=== PATIENT | female | born 2000 | race African-American/Black ===

== ENCOUNTER 2024-02-07 14:30 | Outpatient (RCR) | payer OTHER, SELFPAY ==
--- NOTE | 2024-01-01 14:30 | PT.OPPOC ---
Physical, Occupational & Speech Therapy At [facility] Current Diagnoses Pain in left knee (01/01/24) Other abnormalities of gait and mobility (01/01/24) Visit Care Team Role Provider Type Michelle Mitchell MD Primary Care Provider Non-Staff Specialty: Medical Address: [address] [place] [address], [id number] Email: Hosea Lucas DO Attending Provider Non-Staff Family Provider Referring Provider Specialty: Medical Address: [address] [place] [address], 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 LTG Duration 03/03/24 One Impairment Pt does not have an appropriate home exercise program Short Term Goal (STG) Pt to be independent and compliant with an appropriate HEP STG Duration 02/01/24 Assessment Summary Assessment Pt presents with signs and symptoms consistent with left knee injury. Pt's anteriolateral joint pain, lateral pain with valgus stress, and positive Pardeep and Apley compression tests could be suggestive of lateral meniscus derangement. Less likely due to negative imaging ~1 year ago, however if pt does not improve as expected with conservative treatment, further imaging may be indicated. Pt's biggest limitations at this point are fairly significant increases in pain with stairs, squatting , or attempts at running. Will likely benefit from skilled therapy focusing on increased strength and stabilization of her left knee, as well as gentle STM and joint mobilization. Physical Therapy Plan Frequency and Duration Frequency of Treatment 2x/Week Plan of Care Start Date 01/01/24 Plan of Care End Date 03/03/24 Therapeutic Interventions Therapeutic Interventions Home Exercise Program,Joint Mobilizations,Manual Therapy, Neuromuscular Re-education, Patient/Caregiver Education, Self-Care/Home Management,Soft Tissue Mobilization, Therapeutic Activities, Therapeutic Exercises Modalities Cold Pack/Ice Massage,Electric Stimulation,Hot Packs, Ultrasound Next Visit Focus/Plan Next Note Type Treatment Note Next Visit Plan KNee strengthening, joint mobilization, pain management Plan of Care Dates Plan of Care Start Date 01/01/24 Plan of Care End Date 03/03/24 Electronically Signed by: Baljit Ma, PT 01/02/24 [id number] If you are in agreement with this Plan of Care, please return a signed and dated copy. I have reviewed this Plan of Care and certify that the skilled therapy services above are required to meet the patient?s needs. Physician Signature Date Printed Name and Credentials Clinical Instructor Signature Printed Name and Credentials
--- NOTE | 2024-01-01 14:30 | PT.OIE ---
Current Diagnoses Pain in left knee (01/01/24) Other abnormalities of gait and mobility (01/01/24) Visit Care Team Role Provider Type Michelle Mitchell MD Primary Care Provider Non-Staff Specialty: Medical Address: [address] [place] [address], [address] Email: Hosea Lucas DO Attending Provider Non-Staff Family Provider Referring Provider Specialty: Medical Address: [address] [place] [address], [facility] [place], [address] Email: Physical Therapy Initial Evaluation PT-OP-A Visit Information Start: 01/01/24 16:12 Freq: Status: Active Protocol: Document 01/01/24 13:45 DCW (Rec: 01/01/24 16:20 DCW [id number]) Out-Patient Physical Therapy Visit Information Visit Information Visit Type Initial Evaluation Visit Start Time 13:45 Visit Stop Time 14:30 Visit Number 1 Number of EXPERIENCE DESIGNER Visits 0 Evaluation Information Evaluation Date 01/01/24 PT-OP-B Current Condition Start: 01/01/24 16:12 Freq: Status: Active Protocol: Document 01/01/24 13:45 DCW (Rec: 01/02/24 14:01 DCW [id number]) Current Condition History of Current Condition Onset Date Four year history Current Complaints Left knee pain History of Current Condition Pt is a 23 year old female presenting with a four year history of left knee pain. 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 Increased pain with squats, stairs, sit<-> stand, or running. Has to ascend/descend stairs multiple times throughout the day due to her work. Pain is typically along medial and lateral areas with stairs, but the whole knee hurts with squats. Does report [place], but [place] was [place] unremarkable. PT-OP-C Subjective Start: 01/01/24 16:12 Freq: Status: Active Protocol: Document 01/01/24 13:45 DCW (Rec: 01/01/24 16:20 DCW [id number]) OP-PT Subjective Patient Comments Patient Comments Pt notes when she has previously been in PT, it helped minimize her pain, but it was always there Patient Questionnaires Lower Extremity Functional Scale LEFS Score 55/80 = 68.75% LEFS Impairment 20 to 39% Impaired (Score 48- 62) PT-OP-F Manual Assessment Start: 01/01/24 16:12 Freq: Status: Active Protocol: Document 01/01/24 13:45 DCW (Rec: 01/01/24 16:25 DCW [id number]) Manual Assessments Joint Mobility Assessment Joint Mobility Assessment Tenderness 3/4: Wincing and withdraw along left anteriolateral joint line PT-OP-G Mobility & Gait Start: 01/01/24 16:12 Freq: Status: Active Protocol: Document 01/01/24 13:45 DCW (Rec: 01/01/24 16:25 DCW [id number]) OP Gait Assessment Gait Deviations General Gait Pattern Antalgic,Lateral Trunk Lean Factors Limiting Gait Function Factors Limiting Gait Function Pain PT-OP-K Range of Motion Start: 01/01/24 16:12 Freq: Status: Active Protocol: Document 01/01/24 13:45 DCW (Rec: 01/01/24 16:25 DCW [id number]) Knee Goniometric Range of Motion Knee Right Patient Position Supine Flexion Active (degrees) 120 Extension Active (degrees) 0 Left Patient Position Supine Flexion Active (degrees) 135 Extension Active (degrees) 0 PT-OP-L Special Tests Start: 01/01/24 16:12 Freq: Status: Active Protocol: Document 01/01/24 13:45 DCW (Rec: 01/01/24 16:25 DCW [id number]) Special Tests Knee Special Tests Varus- 25 Degrees Test Results Negative Valgus- 25 Degrees Test Results Positive left for lateral joint pain Patellar Grind Test Test Results Positive left Pardeep Test Test Results Positive left Shawanda's Test Results Negative Apprehension Test Test Results Positive left Apley's Compression Test Results Strongly positive left PT-OP-M Strength Start: 01/01/24 16:12 Freq: Status: Active Protocol: Document 01/01/24 13:45 DCW (Rec: 01/01/24 16:25 DCW [id number]) Knee Strength Knee Manual Muscle Testing Right Flexion (S2) 4+ Good+ Extension (L3) 4+ Good+ Left Flexion (S2) 4- Good- Extension (L3) 4 Good Comments Limited secondary to pain PT-OP-Q Treatments Start: 01/01/24 16:12 Freq: Status: Active Protocol: Document 01/01/24 13:45 DCW (Rec: 01/01/24 16:20 DCW [id number]) Therapeutic Exercises 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s Step Lunge 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 Name Mini-lunge on step Side left Equipment Used 6 step Comments HEP - Pain-free ROM Hip Abduction 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 Name Hip Abduction Side left Comments Stopped d/t increased pain TKE 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 Name TKE Side left Resistance Lv 3 Comments HEP PT-OP-T Assessment and Plan Start: 01/01/24 16:12 Freq: Status: Active Protocol: Document 01/01/24 13:45 DCW (Rec: 01/02/24 14:01 DCW [id number]) Physical Therapy Assessment Evaluation Complexity Number of Personal Factors/Comorbidities 1-2 Number of Body Systems Impaired 4 or More Clinical Presentation at Evaluation Evolving Impairments Impairments Functional Activities, Functional Mobility,Pain,ROM, Strength Goals Two Impairment Pt unable to ascend/descend stairs without increased left knee pain 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 LTG Duration 03/03/24 One Impairment Pt does not have an appropriate home exercise program Short Term Goal (STG) Pt to be independent and compliant with an appropriate HEP STG Duration 02/01/24 Assessment Summary Assessment Pt presents with signs and symptoms consistent with left knee injury. Pt's anteriolateral joint pain, lateral pain with valgus stress, and positive Pardeep and Apley compression tests could be suggestive of lateral meniscus derangement. Less likely due to negative imaging ~1 year ago, however if pt does not improve as expected with conservative treatment, further imaging may be indicated. Pt's biggest limitations at this point are fairly significant increases in pain with stairs, squatting , or attempts at running. Will likely benefit from skilled therapy focusing on increased strength and stabilization of her left knee, as well as gentle STM and joint mobilization. Physical Therapy Plan Frequency and Duration Frequency of Treatment 2x/Week Plan of Care Start Date 01/01/24 Plan of Care End Date 03/03/24 Therapeutic Interventions Therapeutic Interventions Home Exercise Program,Joint Mobilizations,Manual Therapy, Neuromuscular Re-education, Patient/Caregiver Education, Self-Care/Home Management,Soft Tissue Mobilization, Therapeutic Activities, Therapeutic Exercises Modalities Cold Pack/Ice Massage,Electric Stimulation,Hot Packs, Ultrasound Next Visit Focus/Plan Next Note Type Treatment Note Next Visit Plan KNee strengthening, joint mobilization, pain management
--- NOTE | 2024-01-07 17:32 | PT.OTN ---
Current Diagnoses Pain in left knee (01/07/24) Other abnormalities of gait and mobility (01/07/24) Physical Therapy Treatment Note PT-OP-A Visit Information Start: 01/01/24 16:12 Freq: Status: Active Protocol: Document 01/07/24 16:48 DCW (Rec: 01/07/24 17:32 DCW [id number]) Out-Patient Physical Therapy Visit Information Visit Information Visit Type Treatment Note Visit Start Time 16:48 Visit Stop Time 17:30 Visit Number 2 Number of SUPERVISOR CONTACT LENS Visits 0 Evaluation Information Evaluation Date 01/01/24 PT-OP-B Current Condition Start: 01/01/24 16:12 Freq: Status: Active Protocol: Document 01/01/24 13:45 DCW (Rec: 01/02/24 14:01 DCW [id number]) Current Condition History of Current Condition Onset Date Four year history Current Complaints Left knee pain History of Current Condition Pt is a 23 year old female presenting with a four year history of left knee pain. 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 Increased pain with squats, stairs, sit<-> stand, or running. Has to ascend/descend stairs multiple times throughout the day due to her work. Pain is typically along medial and lateral areas with stairs, but the whole knee hurts with squats. Does report [place], but it was reportedly unremarkable. PT-OP-C Subjective Start: 01/01/24 16:12 Freq: Status: Active Protocol: Document 01/07/24 16:48 DCW (Rec: 01/07/24 17:32 DCW [id number]) OP-PT Subjective Patient Comments Patient Comments Pt notes she feels pretty good today. PT-OP-F Manual Assessment Start: 01/01/24 16:12 Freq: Status: Active Protocol: Document 01/01/24 13:45 DCW (Rec: 01/01/24 16:25 DCW [id number]) Manual Assessments Joint Mobility Assessment Joint Mobility Assessment Tenderness 3/4: Wincing and withdral along left anteriolateral joint line PT-OP-G Mobility & Gait Start: 01/01/24 16:12 Freq: Status: Active Protocol: Document 01/01/24 13:45 DCW (Rec: 01/01/24 16:25 DCW [id number]) OP Gait Assessment Gait Deviations General Gait Pattern Antalgic,Lateral Trunk Lean Factors Limiting Gait Function Factors Limiting Gait Function Pain PT-OP-K Range of Motion Start: 01/01/24 16:12 Freq: Status: Active Protocol: Document 01/01/24 13:45 DCW (Rec: 01/01/24 16:25 DCW [id number]) Knee Goniometric Range of Motion Knee Right Patient Position Supine Flexion Active (degrees) 120 Extension Active (degrees) 0 Left Patient Position Supine Flexion Active (degrees) 135 Extension Active (degrees) 0 PT-OP-L Special Tests Start: 01/01/24 16:12 Freq: Status: Active Protocol: Document 01/01/24 13:45 DCW (Rec: 01/01/24 16:25 DCW [id number]) Special Tests Knee Special Tests Varus- 25 Degrees Test Results Negative Valgus- 25 Degrees Test Results Positive left for lateral joint pain Patellar Grind Test Test Results Positive left Pardeep Test Test Results Positive left Shawanda's Test Results Negative Apprehension Test Test Results Positive left Apley's Compression Test Results Strongly positive left PT-OP-M Strength Start: 01/01/24 16:12 Freq: Status: Active Protocol: Document 01/01/24 13:45 DCW (Rec: 01/01/24 16:25 DCW [id number]) Knee Strength Knee Manual Muscle Testing Right Flexion (S2) 4+ Good+ Extension (L3) 4+ Good+ Left Flexion (S2) 4- Good- Extension (L3) 4 Good Comments Limited secondary to pain PT-OP-Q Treatments Start: 01/01/24 16:12 Freq: Status: Active Protocol: Document 01/07/24 16:48 DCW (Rec: 01/07/24 17:32 DCW [id number]) Gym Equipment Shuttle Recovery Unilateral Squats Resistance 37# Bilateral Squats Resistance 50# Shuttle Balance Red Details WBOS, Staggered, Lateral weight shift Therapeutic Ball Wall Squat Exercise Details Wall Squat against T-ball Ball Size/Color Red - 55 cm Add ball squeeze Hip/Knee Flexion Exercise Details Resisted hip/knee flexion Ball Size/Color Red - 55 cm Therapeutic Exercises Supine Exercises Bridging Supine Exercise Name Bridging /c add ball squeeze SLR Supine Exercise Name SLR /c ER Side left Sidelying Exercises Hip Adduction Sidelying Exercise Name Hip Adduction 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s BOSU Lunge 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 Name BOSU Lunge Side left Resistance Lv 2 lateral pull PT-OP-T Assessment and Plan Start: 01/01/24 16:12 Freq: Status: Active Protocol: Document 01/07/24 16:48 DCW (Rec: 01/07/24 17:32 DCW [id number]) Physical Therapy Assessment Impairments Impairments Functional Activities, Functional Mobility,Pain,ROM, Strength Goals Two Impairment Pt unable to ascend/descend stairs without increased left knee pain 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 LTG Duration 03/03/24 One Impairment Pt does not have an appropriate home exercise program Short Term Goal (STG) Pt to be independent and compliant with an appropriate HEP STG Duration 02/01/24 Assessment Summary Assessment Pt had some difficulty with activities today, appears to be more associated with general weakness and knee instability than pain. Provided with handout for SLR, wall squats, and hip adduction to work on VMO strengthening. Physical Therapy Plan Frequency and Duration Frequency of Treatment 2x/Week Plan of Care Start Date 01/01/24 Plan of Care End Date 03/03/24 Therapeutic Interventions Therapeutic Interventions Home Exercise Program,Joint Mobilizations,Manual Therapy, Neuromuscular Re-education, Patient/Caregiver Education, Self-Care/Home Management,Soft Tissue Mobilization, Therapeutic Activities, Therapeutic Exercises Modalities Cold Pack/Ice Massage,Electric Stimulation,Hot Packs, Ultrasound Next Visit Focus/Plan Next Note Type Treatment Note Next Visit Plan Knee strengthening, joint mobilization, pain management
--- NOTE | 2024-01-09 16:12 | PT.OTN ---
Current Diagnoses Pain in left knee (01/09/24) Other abnormalities of gait and mobility (01/09/24) Physical Therapy Treatment Note PT-OP-A Visit Information Start: 01/01/24 16:12 Freq: Status: Active Protocol: Document 01/09/24 15:17 AB (Rec: 01/09/24 16:11 AB [id number]) Out-Patient Physical Therapy Visit Information Visit Information Visit Type Treatment Note Visit Note Access Code: [email or web address] Visit Start Time 13:18 Visit Stop Time 04:59 Visit Number 3 Number of MANAGER CABLE Visits 1 Evaluation Information Evaluation Date 01/01/24 PT-OP-B Current Condition Start: 01/01/24 16:12 Freq: Status: Active Protocol: Document 01/01/24 13:45 DCW (Rec: 01/02/24 14:01 DCW [id number]) Current Condition History of Current Condition Onset Date Four year history Current Complaints Left knee pain History of Current Condition Pt is a 23 year old female presenting with a four year history of left knee pain. 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 Increased pain with squats, stairs, sit<-> stand, or running. Has to ascend/descend stairs multiple times throughout the day due to her work. Pain is typically along medial and lateral areas with stairs, but the whole knee hurts with squats. Does report [place], but it was reportedly unremarkable. PT-OP-C Subjective Start: 01/01/24 16:12 Freq: Status: Active Protocol: Document 01/09/24 15:17 AB (Rec: 01/09/24 16:11 AB [id number]) OP-PT Subjective Patient Comments Patient Comments Patient reports she has been doing the exercises, but has pain during the exercise and during her day to day. PT-OP-F Manual Assessment Start: 01/01/24 16:12 Freq: Status: Active Protocol: Document 01/01/24 13:45 DCW (Rec: 01/01/24 16:25 DCW [id number]) Manual Assessments Joint Mobility Assessment Joint Mobility Assessment Tenderness 3/4: Wincing and withdral along left anteriolateral joint line PT-OP-G Mobility & Gait Start: 01/01/24 16:12 Freq: Status: Active Protocol: Document 01/01/24 13:45 DCW (Rec: 01/01/24 16:25 DCW [id number]) OP Gait Assessment Gait Deviations General Gait Pattern Antalgic,Lateral Trunk Lean Factors Limiting Gait Function Factors Limiting Gait Function Pain PT-OP-K Range of Motion Start: 01/01/24 16:12 Freq: Status: Active Protocol: Document 01/01/24 13:45 DCW (Rec: 01/01/24 16:25 DCW [id number]) Knee Goniometric Range of Motion Knee Right Patient Position Supine Flexion Active (degrees) 120 Extension Active (degrees) 0 Left Patient Position Supine Flexion Active (degrees) 135 Extension Active (degrees) 0 PT-OP-L Special Tests Start: 01/01/24 16:12 Freq: Status: Active Protocol: Document 01/01/24 13:45 DCW (Rec: 01/01/24 16:25 DCW [id number]) Special Tests Knee Special Tests Varus- 25 Degrees Test Results Negative Valgus- 25 Degrees Test Results Positive left for lateral joint pain Patellar Grind Test Test Results Positive left Pardeep Test Test Results Positive left Shawanda's Test Results Negative Apprehension Test Test Results Positive left Apley's Compression Test Results Strongly positive left PT-OP-M Strength Start: 01/01/24 16:12 Freq: Status: Active Protocol: Document 01/01/24 13:45 DCW (Rec: 01/01/24 16:25 DCW [id number]) Knee Strength Knee Manual Muscle Testing Right Flexion (S2) 4+ Good+ Extension (L3) 4+ Good+ Left Flexion (S2) 4- Good- Extension (L3) 4 Good Comments Limited secondary to pain PT-OP-Q Treatments Start: 01/01/24 16:12 Freq: Status: Active Protocol: Document 01/09/24 15:17 AB (Rec: 01/09/24 16:11 AB [id number]) Therapeutic Exercises Supine Exercises modified Boyd stretch Supine Exercise Name with knee flexion AROM x 10 Side bilateral Reps/Minutes 60 sec x 2 each LE Sidelying Exercises clamshell Sidelying Exercise Name HEP Side bilateral Reps/Minutes X15 X2 each LE Comments verbal cues for form, tactile cues to avoid rolling back Sitting Exercises seated hip abduction with band Sitting Exercise Name HEP Side bilateral Resistance level 4 blue band Reps/Minutes one minute X 1 and X 3 without hold 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s sit to stand/squat with band 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 Name HEP squat with band Side bilateral Equipment Used level 4 blue band Reps/Minutes X5 sit to stand X 10 squat 1/2 to chair Comments verbal cues for hip hinge, monitored for pain TKE 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 Name TKE Side left Resistance Lv 4 Reps/Minutes X10 Comments HEP Therapeutic Activity Therapeutic Activity ascending and descending 4 six inch steps Name with and without rails Reps/Minutes X2 Comments Patient ed/verbal and visual cues to flex fwd trunk at hips when ascending and descending stairs, and activate gluteal muscles when ascending. VC for UE position on rails when descending. 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 LTG Duration 03/03/24 One Impairment Pt does not have an appropriate home exercise program Short Term Goal (STG) Pt to be independent and compliant with an appropriate HEP STG Duration 02/01/24 Assessment Summary Assessment Patient able to perform sit to stand with band to 18 inch seat height X4 reporting no knee pain, but did have pain on 5th repetition. Patient ed to perform squat to depth that does not increase pain, starting with 1/2 to chair seat, and was able to perform X 10 with reports of no increased pain, but end of session did report the knee felt aggravated. Physical Therapy Plan Frequency and Duration Frequency of Treatment 2x/Week Plan of Care Start Date 01/01/24 Plan of Care End Date 03/03/24 Next Visit Focus/Plan Next Note Type Treatment Note Next Visit Plan Knee strengthening, joint mobilization, pain management Assess chandler to additions to HEP
--- NOTE | 2024-02-05 17:38 | PT.OTN ---
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 Increased pain with squats, stairs, sit<-> stand, or running. Has to ascend/descend stairs multiple times throughout the day due to her work. Pain is typically along medial and lateral areas with stairs, but the whole knee hurts with squats. Does report [place], but it was reportedly unremarkable. PT-OP-C Subjective Start: 01/01/24 16:12 Freq: Status: Active Protocol: Document 02/05/24 16:45 DCW (Rec: 02/05/24 17:38 DCW [id number]) OP-PT Subjective Patient Comments Patient Comments Just coming from a workout, reports they were doing Volleyball today. Legs are more tired currently than sore . Overall notes minimal change . PT-OP-F Manual Assessment Start: 01/01/24 16:12 Freq: Status: Active Protocol: Document 01/01/24 13:45 DCW (Rec: 01/01/24 16:25 DCW [id number]) Manual Assessments Joint Mobility Assessment Joint Mobility Assessment Tenderness 3/4: Wincing and withdral along left anteriolateral joint line PT-OP-G Mobility & Gait Start: 01/01/24 16:12 Freq: Status: Active Protocol: Document 01/01/24 13:45 DCW (Rec: 01/01/24 16:25 DCW [id number]) OP Gait Assessment Gait Deviations General Gait Pattern Antalgic,Lateral Trunk Lean Factors Limiting Gait Function Factors Limiting Gait Function Pain PT-OP-K Range of Motion Start: 01/01/24 16:12 Freq: Status: Active Protocol: Document 01/01/24 13:45 DCW (Rec: 01/01/24 16:25 DCW [id number]) Knee Goniometric Range of Motion Knee Right Patient Position Supine Flexion Active (degrees) 120 Extension Active (degrees) 0 Left Patient Position Supine Flexion Active (degrees) 135 Extension Active (degrees) 0 PT-OP-L Special Tests Start: 01/01/24 16:12 Freq: Status: Active Protocol: Document 01/01/24 13:45 DCW (Rec: 01/01/24 16:25 DCW [id number]) Special Tests Knee Special Tests Varus- 25 Degrees Test Results Negative Valgus- 25 Degrees Test Results Positive left for lateral joint pain Patellar Grind Test Test Results Positive left Pardeep Test Test Results Positive left Shawanda's Test Results Negative Apprehension Test Test Results Positive left Apley's Compression Test Results Strongly positive left PT-OP-M Strength Start: 01/01/24 16:12 Freq: Status: Active Protocol: Document 01/01/24 13:45 DCW (Rec: 01/01/24 16:25 DCW [id number]) Knee Strength Knee Manual Muscle Testing Right Flexion (S2) 4+ Good+ Extension (L3) 4+ Good+ Left Flexion (S2) 4- Good- Extension (L3) 4 Good Comments Limited secondary to pain PT-OP-Q Treatments Start: 01/01/24 16:12 Freq: Status: Active Protocol: Document 02/05/24 16:45 DCW (Rec: 02/05/24 17:38 DCW [id number]) Therapeutic Exercises Sidelying Exercises Triple Threat Sidelying Exercise Name Clamshell, reverse clamshell, abduction Side bilateral 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s ER/IR 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 Name Resisted ER/IR Side bilateral Resistance Lv 2 Comments Half-kneel on stool Sliders 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 Name 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 Side bilateral sit to stand/squat with band 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 Name Squat /s band Comments verbal cues for hip hinge, monitored for pain Manual Therapy Treatment Joint Mobilizations L knee Joint L Knee Direction P<->A Grade III Body Position Sitting Taping L knee Body Location L knee Treatment Focus Two Y-strips across patella Type of Tape Kinesio Tape PT-OP-T Assessment and Plan Start: 01/01/24 16:12 Freq: Status: Active Protocol: Document 02/05/24 16:45 DCW (Rec: 02/05/24 17:38 DCW [id number]) Physical Therapy Assessment Impairments Impairments Functional Activities, Functional Mobility,Pain,ROM, Strength Goals Two Impairment Pt unable to ascend/descend stairs without increased left knee pain Lock Tender Goal (LTG) Pt to ascend and descend flight of 15 stairs without increased knee pain in order to better perform work duties. LTG Duration 03/03/24 One Impairment Pt does not have an appropriate home exercise program Short Term Goal (STG) Pt to be independent and compliant with an appropriate HEP STG Duration 02/01/24 Assessment Summary Assessment Pt tolerated taping well, noted decreased pain with activity following k-tape. Pt doing slightly better with activity today, noticeable weakness in left hip vs right performing new exercises. Physical Therapy Plan Frequency and Duration Frequency of Treatment 2x/Week Plan of Care Start Date 01/01/24 Plan of Care End Date 03/03/24 Therapeutic Interventions Therapeutic Interventions Home Exercise Program,Joint Mobilizations,Manual Therapy, Neuromuscular Re-education, Patient/Caregiver Education, Self-Care/Home Management,Soft Tissue Mobilization, Therapeutic Activities, Therapeutic Exercises Modalities Cold Pack/Ice Massage,Electric Stimulation,Hot Packs, Ultrasound Next Visit Focus/Plan Next Note Type Treatment Note Next Visit Plan Knee strengthening, joint mobilization, pain management Assess chandler to additions to HEP
--- NOTE | 2024-08-07 15:39 | PT.OPDS ---
Current Diagnoses Pain in left knee (02/07/24) Other abnormalities of gait and mobility (02/07/24) Visit Care Team Role Provider Type Michelle Mitchell MD Primary Care Provider Non-Staff Specialty: Medical Address: [address] [place] [address], [id number] Email: Hosea Lucas DO Attending Provider Non-Staff Family Provider Referring Provider Specialty: Medical Address: [address] [place] [address], [facility] [place], [address] Email: Visit Number Visit Number 6 Discharge Summary PT-OP-B Current Condition Start: 01/01/24 16:12 Freq: Status: Active Protocol: Document 01/01/24 13:45 DCW (Rec: 01/02/24 14:01 DCW [id number]) Current Condition History of Current Condition Onset Date Four year history Current Complaints Left knee pain History of Current Condition Pt is a 23 year old female presenting with a four year history of left knee pain. 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 Increased pain with squats, stairs, sit<-> stand, or running. Has to ascend/descend stairs multiple times throughout the day due to her work. Pain is typically along medial and lateral areas with stairs, but the whole knee hurts with squats. Does report [place], but it was reportedly unremarkable. PT-OP-F Manual Assessment Start: 01/01/24 16:12 Freq: Status: Active Protocol: Document 01/01/24 13:45 DCW (Rec: 01/01/24 16:25 DCW [id number]) Manual Assessments Joint Mobility Assessment Joint Mobility Assessment Tenderness 3/4: Wincing and withdral along left anteriolateral joint line PT-OP-G Mobility & Gait Start: 01/01/24 16:12 Freq: Status: Active Protocol: Document 01/01/24 13:45 DCW (Rec: 01/01/24 16:25 DCW [id number]) OP Gait Assessment Gait Deviations General Gait Pattern Antalgic,Lateral Trunk Lean Factors Limiting Gait Function Factors Limiting Gait Function Pain PT-OP-K Range of Motion Start: 01/01/24 16:12 Freq: Status: Active Protocol: Document 01/01/24 13:45 DCW (Rec: 01/01/24 16:25 DCW [id number]) Knee Goniometric Range of Motion Knee Right Patient Position Supine Flexion Active (degrees) 120 Extension Active (degrees) 0 Left Patient Position Supine Flexion Active (degrees) 135 Extension Active (degrees) 0 PT-OP-L Special Tests Start: 01/01/24 16:12 Freq: Status: Active Protocol: Document 01/01/24 13:45 DCW (Rec: 01/01/24 16:25 DCW [id number]) Special Tests Knee Special Tests Varus- 25 Degrees Test Results Negative Valgus- 25 Degrees Test Results Positive left for lateral joint pain Patellar Grind Test Test Results Positive left Pardeep Test Test Results Positive left Shawanda's Test Results Negative Apprehension Test Test Results Positive left Apley's Compression Test Results Strongly positive left PT-OP-M Strength Start: 01/01/24 16:12 Freq: Status: Active Protocol: Document 01/01/24 13:45 DCW (Rec: 01/01/24 16:25 DCW [id number]) Knee Strength Knee Manual Muscle Testing Right Flexion (S2) 4+ Good+ Extension (L3) 4+ Good+ Left Flexion (S2) 4- Good- Extension (L3) 4 Good Comments Limited secondary to pain PT-OP-T Assessment and Plan Start: 01/01/24 16:12 Freq: Status: Active Protocol: Document 08/07/24 15:37 DCW (Rec: 08/07/24 15:38 DCW [id number]) Physical Therapy Assessment Assessment Summary Assessment Pt canceled last four scheduled visits, has not been seen in more than five months . Pt will be discharged at this time, will require a new referral in order to return in the future. Physical Therapy Plan Discharge Physical Therapy Discharge Reasons No Longer Attending PT Next Visit Focus/Plan Next Note Type Discharge Summary
== END 2024-08-10 09:57 | disposition home or self-care (01) ==
LOC: PHYS 14:30
PROVIDERS: Family Provider Preventive Medicine Aerospace Medicine; PCP Student in an Organized Health Care Education/Training Program; Referring Provider Preventive Medicine Aerospace Medicine; Visit Provider Preventive Medicine Aerospace Medicine
DX: M25.562 Pain in left knee (principal); R26.89 Other abnormalities of gait and mobility
CPT/HCPCS: 97110; 97112; 97140; 97162; 97530